=== PATIENT | female | born 2005 | race Two or more races ===

== ENCOUNTER 2023-06-19 14:40 | Emergency (ER) | payer BC ==
[~2023-06-19] VITALS: Ht 170.2 cm; Wt 61.2 kg
[2023-06-19 16:33] LABS: HEMATOCRIT 43.2 % (36.0-45.00); HEMOGLOBIN 14.6 g/dL (12.0-15.00); MEAN CELL VOLUME 90.5 fL (80.00-100.00); MEAN CORPUSCULAR HEMOGLOBIN 30.6 pg (27.00-32.0); MEAN CORPUSCULAR HGB CONC 33.8 g/dl (32.0-36.0); PLATELET COUNT 271 K/uL (150-450); RED BLOOD COUNT 4.77 M/uL (4.00-6.00); RED CELL DISTRIBUTION WIDTH 13.1 % (11.5-14.5)
[2023-06-19 16:57] LABS: ALBUMIN 4.7 gm/dL (3.4-5.0); BILIRUBIN TOTAL 0.51 mg/dL (0.3-1.2); CALCIUM 9.7 mg/dL (8.5-10.1); CREATININE SERUM 0.66 mg/dL (0.55-1.02); GFR 114.18; POTASSIUM 4.24 mEq/L (3.5-5.1); TOTAL PROTEIN 8.7 gm/dL (6.4-8.2)
== END 2023-06-19 17:55 | disposition home or self-care (01) ==
LOC: ER 14:41 → EMR PED 14:41
PROVIDERS: Emergency Medicine Pediatric Emergency Medicine
DX: L55.9 Sunburn, unspecified (principal); X32.XXXA Exposure to sunlight, initial encounter; Y93.89 Activity, other specified; Y92.832 Beach as the place of occurrence of the external cause; Y99.8 Other external cause status; Z88.0 Allergy status to penicillin